=== PATIENT | female | born 1980 | race Caucasian/White ===

== ENCOUNTER 2021-03-18 17:14 | Emergency (ER) | payer OTHER ==
[2021-03-18 17:53] VITALS: PULSE 78; TEMP 99.1
[2021-03-18] MEDS ORDERED: FAMOTIDINE 20 MG/2 ML VIAL IV STA (18:06)
[2021-03-18] MEDS ORDERED: diphenhydrAMINE 50 MG/ML 1 ML VIAL IVP STA (18:06)
[2021-03-18] MEDS ORDERED: SODIUM CHLORIDE 0.9% 1,000 ML IV STA (18:06)
[2021-03-18] MEDS ORDERED: ONDANSETRON 4 MG/2 ML VIAL IVP STA (18:06)
[2021-03-18] MEDS ORDERED: DICYCLOMINE 20 MG TAB PO STA (18:20)
[2021-03-18 19:00] LABS: Anisocytosis Slight; Basophils # (A) 0.1 k/uL (0-0.2); Basophils % (A) 1 %; Eosinophils # (A) 0.6 k/uL (0-0.7); Eosinophils % (A) 6 %; HCT 39.1 % (34.0-46.0); HGB 12.7 gm/dL (11.4-16.0); Lymphocytes # (A) 2.1 k/uL (1.0-4.8); Lymphocytes % (A) 22 %; MCH 26.1 pg (25.0-35.0); MCHC 32.4 g/dL (31.0-37.0); MCV 80.4 fL (80.0-100.0); Microcytosis Slight; Monocytes # (A) 0.6 k/uL (0-1.0); Monocytes % (A) 6 %; Neutrophils # (A) 6.1 k/uL (1.3-7.7); Neutrophils % (A) 63 %; Platelet Count 428 k/uL (150-450); RBC 4.86 m/uL (3.80-5.40); RDW 19.3 % (11.5-15.5); WBC 9.6 k/uL (3.8-10.6)
[2021-03-18 19:17] LABS: African American GFR (CKD) >90 (>60 ml/min/1.73 sqM); Albumin 4.6 g/dL (3.5-5.0); Anion Gap 11 mmol/L; Blood Urea Nitrogen 10 mg/dL (7-17); Carbon Dioxide 22 mmol/L (22-30); Chloride 108 mmol/L (98-107); Glucose 81 mg/dL (74-99); Non-African American GFR(CKD) >90 (>60 ml/min/1.73 sqM); Potassium 4.4 mmol/L (3.5-5.1); Sodium 141 mmol/L (137-145); Total Bilirubin <0.1 mg/dL (0.2-1.3); Total Protein 7.2 g/dL (6.3-8.2)
[2021-03-18 19:18] LABS: ALT 15 U/L (4-34); AST 25 U/L (14-36); Alkaline Phosphatase 52 U/L (38-126); Amylase 119 U/L (30-110); HCG,Qualitative Serum Not Detected; Lipase 610 U/L (23-300)
[2021-03-18] MEDS ORDERED: DEXTROSE 5%-0.9% NACL 1,000 ML IV SCH (20:00)
--- NOTE | 2021-03-18 22:05 | ED ---
General Adult HPI - General Chief complaint: Nausea/Vomiting/Diarrhea Stated complaint: possible dehydration, weakness Time Seen by Provider: 03/18/21 17:35 Source: patient, RN notes reviewed, old records reviewed Mode of arrival: ambulatory Limitations: no limitations - History of Present Illness Initial comments: Patient is a 40-year-old female with past medical history remarkable for asthma, as well as previous Iron deficiency anemia presents to the emergency Department complaining of a multi day history of loose stools. She states that she feels generalized fatigue, and feels like she cannot tolerate any food as it "runs right through me." She states that her stools are dark brown. Denies any gross blood. Denies any nausea or vomiting. Denies any abdominal pain. She has any chest pain, shortness of breath. She is just complaining of generalized weakness which she took is to dehydration. She is no urinary complaints at this time. She states she is currently on her menstrual cycle but denies any excessively heavy cycle. She states she is not . She is no fevers or chills or sick contacts. She does not believe she has Covid, but has only received the first dose of the vaccination. She'll ice is no acute complaints at this time. Her primary complaint is fatigue that she is having with her generalized diarrhea. She denies any headache, numbness, weakness, dizziness, lightheadedness. - Related Data Home Medications Medication Instructions Recorded Confirmed Albuterol Sulfate [Proair Hfa] 2 puff INHALATION RT-Q4H PRN 03/18/21 03/18/21 Previous Rx's Medication Instructions Recorded Dicyclomine [Bentyl] 10 mg PO QID 10 Days #40 capsule 03/18/21 Allergies Allergy/AdvReac Type Severity Reaction Status Date / Time amoxicillin trihydrate Allergy Unknown Verified 03/18/21 18:43 [From Augmentin] iodine Allergy Unknown Verified 03/18/21 18:43 Penicillins Allergy Unknown Verified 03/18/21 18:43 potassium clavulanate Allergy Unknown Verified 03/18/21 18:43 [From Augmentin] venom-honey bee Allergy Unknown Verified 03/18/21 18:43 [bee venom (honey bee)] shellfish derived [Shellfish] AdvReac Anaphylaxis Verified 03/18/21 18:43 Review of Systems ROS Statement: Those systems with pertinent positive or pertinent negative responses have been documented in the HPI. Review of Systems: CONST: Endorses fatigue EYES: Denies blurry vision ENT: Denies nasal congestion C/V: Denies Chest pain RESP: Denies shortness of breath GI: Denies abdominal pain : Denies dysuria SKIN: Denies rash. MSK: Denies joint pain. NEURO: Denies headache ROS Other: All systems not noted in ROS Statement are negative. Past Medical History Past Medical History: Asthma History of Any Multi-Drug Resistant Organisms: None Reported Past Surgical History: No Surgical Hx Reported, Section Past Psychological History: Depression Past Alcohol Use History: None Reported Past Drug Use History: None Reported General Exam - General Exam Comments Initial Comments: General: Appears in no acute distress. HEAD: Normal with no signs of head trauma. EYES: PERRLA, EOMI, conjunctiva normal, no discharge. Pupils are 3 mm and equal bilaterally. ENT: Hearing grossly intact, normal oropharynx. Mucous membranes are mildly dry. RESPIRATORY: Clear breath sounds bilaterally. No wheezes, rales, or rhonchi. C/V: Regular rate and rhythm. S1 and S2 auscultated, no edema, peripheral pulses 2+ and intact throughout ABD: Abd is soft, nontender, nondistended EXT: Normal range of motion, no obvious deformity SKIN: No rashes or lesions observed on exposed skin. NEURO: Alert and oriented x 4. Cranial nerves II-XII intact. No focal sensory or strength deficits. Cerebellar function is intact as evident by normal finger nose testing. Patient is able to ambulate without difficulty. Limitations: no limitations Course Vital Signs 03/18/21 03/18/21 17:18 22:07 Temperature 99.1 F Pulse Rate 78 78 Respiratory 16 18 Rate Blood Pressure 112/68 128/70 O2 Sat by Pulse 100 98 Oximetry Medical Decision Making - Medical Decision Making Based on the patient's presentation and physical exam, I'm concerned for acute intra-abdominal process for current symptoms, likely a viral syndrome causing her diarrhea. She does appear mildly dehydrated as well. Therefore we will obtain basic abdominal laboratories studies. I did discuss with her that due to the COVID-19 outbreak in her having potential symptoms for COVID-19, I would like to obtain a COVID-19 swab. She did consent. Patient otherwise will be given a 1 L fluid bolus as well as Bentyl and IV Pepcid. She is not requiring any analgesia at this time. Patient was in agreement this plan. Patient's laboratory studies are remarkable for a normal CBC. Electrolytes are unremarkable. Patient does have isolated acutely elevated amylase and lipase of 119 and 610 respectively. She is not . Reevaluation, she states she is still feeling somewhat fatigued. She was given an additional fluid bolus with D5W normal saline. Following this bolus, she was feeling improved. She states that her energy has returned. We did discuss the results of laboratory studies including elevated pancreatic enzymes. She is asymptomatic in terms of pain, nausea, vomiting. She is tolerating by mouth intake. She had a cholecystectomy previously and there is low suscpicion for gallstones. She does not abuse alcohol and has no history of diabetes. I do believe it is safe for her to be discharged home with close follow-up with gastroenterology. She was in agreement this plan. I will provide the patient with a prescription for bentyl. I instructed the patient to follow up with their PCP in the next 3 days. [I provided contact information for follow up with] Dr. Long. I explained that the patient should return to the emergency department if they experience any worsening symptoms. Strict return precautions were discussed with the patient. The patient expressed understanding of these instructions. I answered all questions that the patient had. The patient was discharged home in fair condition with their prescriptions and follow up information. - Lab Data Result diagrams: 03/18/21 18:40 03/18/21 18:40 Lab Results 03/18/21 03/18/21 03/18/21 Range/Units 18:40 18:40 18:48 WBC 9.6 (3.8-10.6) k/uL RBC 4.86 (3.80-5.40) m/uL Hgb 12.7 (11.4-16.0) gm/dL Hct 39.1 (34.0-46.0) % MCV 80.4 (80.0-100.0) fL MCH 26.1 (25.0-35.0) pg MCHC 32.4 (31.0-37.0) g/dL RDW 19.3 H (11.5-15.5) % Plt Count 428 (150-450) k/uL MPV 8.0 Neutrophils % 63 % Lymphocytes % 22 % Monocytes % 6 % Eosinophils % 6 % Basophils % 1 % Neutrophils # 6.1 (1.3-7.7) k/uL Lymphocytes # 2.1 (1.0-4.8) k/uL Monocytes # 0.6 (0-1.0) k/uL Eosinophils # 0.6 (0-0.7) k/uL Basophils # 0.1 (0-0.2) k/uL Anisocytosis Slight Microcytosis Slight Sodium 141 (137-145) mmol/L Potassium 4.4 (3.5-5.1) mmol/L Chloride 108 H (98-107) mmol/L Carbon Dioxide 22 (22-30) mmol/L Anion Gap 11 mmol/L BUN 10 (7-17) mg/dL Creatinine 0.78 (0.52-1.04) mg/dL Est GFR (CKD-EPI)AfAm >90 (>60 ml/min/1.73 sqM) Est GFR (CKD-EPI)NonAf >90 (>60 ml/min/1.73 sqM) Glucose 81 (74-99) mg/dL Calcium 10.0 (8.4-10.2) mg/dL Total Bilirubin <0.1 L (0.2-1.3) mg/dL AST 25 (14-36) U/L ALT 15 (4-34) U/L Alkaline Phosphatase 52 (38-126) U/L Total Protein 7.2 (6.3-8.2) g/dL Albumin 4.6 (3.5-5.0) g/dL Amylase 119 H (30-110) U/L Lipase 610 H (23-300) U/L HCG, Qual Not Detected Coronavirus (PCR) Not Detected (Not Detectd) Disposition Clinical Impression: Diarrhea, Pancreatitis Disposition: HOME SELF-CARE Condition: Fair Instructions (If sedation given, give patient instructions): Pancreatitis (ED), Acute Diarrhea (ED) Prescriptions: Dicyclomine [Bentyl] 10 mg PO QID 10 Days #40 capsule Is patient prescribed a controlled substance at d/c from ED?: No Referrals: Alvino Young DO [Primary Care Provider] - 1-2 days Yaritza Long MD [STAFF PHYSICIAN] - 1-2 days
[2021-03-18 22:08] VITALS: BP 128/70; RESP 18
== END 2021-03-18 22:07 | disposition home or self-care (01) ==
LOC: EC 17:14
DX: K85.90 Acute pancreatitis without necrosis or infection, unspecified (principal); R19.7 Diarrhea, unspecified; J45.909 Unspecified asthma, uncomplicated; F32.9 Major depressive disorder, single episode, unspecified; Z79.899 Other long term (current) drug therapy; Z88.0 Allergy status to penicillin; Z88.1 Allergy status to other antibiotic agents; Z20.822 Contact with and (suspected) exposure to COVID-19
CPT/HCPCS: 36415; 80053; 82150; 83690; 84703; 85025; 87635; 96361; 96374; 99284